=== PATIENT | male | born 1960 | race Caucasian/White ===

== ENCOUNTER → 2017-02-26 | Outpatient (CLI) | payer BC ==
--- NOTE | 2017-02-26 12:17 | REP ---
Cervical spine seven views: Vertebral body heights and alignment are normal. The facets are normally aligned. Prevertebral soft tissues are normal. There is disc space narrowing and osteophytic growth compatible with degenerative disc disease at C 05/06. There is no listhesis on flexion or extension. Facets are normally aligned. The odontoid view is unremarkable. There is foraminal encroachment from uncinate spurring at C5-6 on the left. The right foramen are suboptimally demonstrated. Impression: C5-6 degenerative disc disease with foraminal encroachment from uncinate spurring on the left at this level. The right foramen are suboptimally demonstrated. Otherwise, negative cervical spine. Signed by Anish Garcia MD 02/26/2017 12:08 P
--- NOTE | 2017-02-26 12:22 | REP ---
Lumbar spine seven views including lateral views with flexion and extension: Vertebral body heights, interspacing alignment are normal. There is no spondylolysis. There is no spondylolisthesis. There is no listhesis on the lateral views with flexion or extension. There are osteophytes at L2-3 and L 3-4 compatible with degenerative disc disease. There is no disc space narrowing. The disc spaces are otherwise unremarkable. The facet articulations are unremarkable. Sacroiliac articulations are unremarkable. Impression: Degenerative disc disease at L 03/04 and L4-5. There is no listhesis on flexion or extension. There is no spondylolysis. The pedicles, facets and sacroiliac articulations are unremarkable. Signed by Anish Garcia MD 02/26/2017 12:13 P
== END ==
LOC: M RAD 09:50 → EDBD 09:50
PROVIDERS: ATTEND Neurological Surgery
DX: M47.892 Other spondylosis, cervical region (principal); M47.896 Other spondylosis, lumbar region

== ENCOUNTER → 2017-03-11 | Outpatient (CLI) | payer BC ==
--- NOTE | 2017-03-11 15:32 | REP ---
MR CERVICAL SPINE WITHOUT CONTRAST: HISTORY: Neck pain. A disc bulge is present at the C4-5 level. There is mild effacement of the thecal sac without spinal cord compression. Uncinate process hypertrophy is present on the right. This produces mild narrowing of the right C4 neural foramen. The left C4 neural foramen is patent. A disc bulge with associated osteophyte formation is present at the C5-6 level. There is moderate effacement of the thecal sac without spinal cord compression. Bilateral uncinate process hypertrophy is present. This produces moderate and minimal narrowing of the right and left C5 neural foramina respectfully. A disc bulge is present at the C6-7 level. There is minimal effacement of the thecal sac without spinal cord compression. The C6 neural foramina are patent. There is no other disc bulge or herniation. The remaining neural foramina are patent. The spinal cord is normal in signal intensity. The C5-6 and C6-7 intervertebral discs are decreased in height consistent with disc degeneration. IMPRESSION: There is cervical spondylolysis at the C4-5 through C6-7 levels without spinal cord compression. Signed by Ronan Marx MD 03/11/2017 03:55 P
--- NOTE | 2017-03-11 15:48 | REP ---
MRA BRAIN WITHOUT CONTRAST: HISTORY: TIAs. 3D TOF MR angiography was performed at the level of the [place]. 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 The aneurysm measures 1.6 x 1.6 mm. There is no other aneurysm or arteriovenous malformation. There are no atherosclerotic lesions. Major intracranial vessels are patent. The vertebral arteries are equal in size. 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 Signed by Ronan Marx MD 03/11/2017 03:56 P
== END ==
LOC: M RAD 12:30
PROVIDERS: ATTEND Neurological Surgery
DX: I67.1 Cerebral aneurysm, nonruptured (principal)